=== PATIENT | female | born 1965 | race Caucasian/White ===

== ENCOUNTER 2019-06-21 10:08 | Emergency (ER) | payer MEDICAID ==
[~2019-06-21] VITALS: Ht 165.1 cm; Wt 92.5 kg
[2019-06-21 10:17] VITALS: BP 140/82
--- NOTE | 2019-06-21 10:36 | NUR ---
53/F BIB SELF C/O DIZZINESS/NAUSEA X1 DAY. PT STATES SHE HAS ALSO HAD A SORE THROAT. DENIES FEVER. FSBS 252 AT TRIAGE. HX: BREAST CANCER (REMISSION), DM. PATIENT STATES PAIN OF 4/10 AT THIS TIME. PATIENT POSITIONED FOR COMFORT; HOB ELEVATED; BEDRAILS UP X1; BED DOWN. ER MD MADE AWARE OF PT STATUS.
[2019-06-21 12:09] VITALS: BP 138/79
--- NOTE | 2019-06-21 12:09 | NUR ---
Patient discharged with v/s stable. Written and verbal after care instructions given and explained. Patient alert, oriented and verbalized understanding of instructions. Ambulatory with steady gait. All questions addressed prior to discharge. ID band removed. Patient advised to follow up with PMD. Rx of ZOFRAN, ATARAX given. Patient educated on indication of medication including possible reaction and side effects. Opportunity to ask questions provided and answered.
== END 2019-06-21 12:09 | disposition home or self-care (01) ==
LOC: MED 10:08
DX: R42 Dizziness and giddiness (principal); R11.2 Nausea with vomiting, unspecified; E11.9 Type 2 diabetes mellitus without complications; Z85.9 Personal history of malignant neoplasm, unspecified
CPT/HCPCS: 81002; 99283

== ENCOUNTER 2020-08-19 13:24 | Emergency (ER) | payer MEDICAID ==
[~2020-08-19] VITALS: Ht 160 cm; Wt 65.8 kg
[2020-08-19 13:42] VITALS: BP 137/73
[2020-08-19 14:10] LABS: BASOPHILS # (AUTO) 0.1 K/uL (0.00-0.22); BASOPHILS % (AUTO) 1.8 % (0.0-2.0); EOSINOPHILS # (AUTO) 0.1 K/uL (0-0.4); EOSINOPHILS % (AUTO) 2.2 % (0.0-4.0); HEMATOCRIT 39.8 % (36-48); HEMOGLOBIN 13.4 g/dL (12.0-16.0); LYMPHOCYTES # (AUTO) 1.5 K/uL (2.5-16.5); LYMPHOCYTES % (AUTO) 33.5 % (20.5-51.1); MEAN CORPUSCULAR HEMOGLOBIN 31 pg (27-31); MEAN CORPUSCULAR HGB CONC 34 g/dL (33-37); MEAN CORPUSCULAR VOLUME 90.9 fL (80-94); MONOCYTES # (AUTO) 0.2 K/uL (0.8-1.0); NEUTROPHILS # (AUTO) 2.6 K/uL (1.8-7.7); NEUTROPHILS % (AUTO) 57.5 % (42.2-75.2); PLATELET COUNT (AUTO) 218 K/uL (140-450); RED BLOOD CELL COUNT(AUTO) 4.38 MIL/uL (4.20-5.40); RED CELL DISTRIBUTION WIDTH 14.2 % (11.6-13.7); WHITE BLOOD COUNT (AUTO) 4.6 K/uL (4.8-10.8)
[2020-08-19 14:11] LABS: APPEARANCE,URINE CLEAR (CLEAR); BILIRUBIN,URINE NEGATIVE (NEGATIVE); BLOOD, URINE 1+ (NEGATIVE); COLOR,URINE YELLOW (YELLOW); LEUKOCYTE ESTERASE ,URINE TRACE (NEGATIVE); NITRITE, URINE NEGATIVE (NEGATIVE); UGLUCOSE NEGATIVE (NEGATIVE)
[2020-08-19 14:33] LABS: ALBUMIN 3.5 g/dL (3.4-5.0); ANION GAP 9.9 (8-16); CARBON DIOXIDE 30.1 mmol/L (21-32); CREATININE 0.7 mg/dL (0.6-1.3); TOTAL BILIRUBIN 0.3 mg/dL (0.0-1.0)
[2020-08-19] MEDS ORDERED: IBUP-2230 PO (14:53)
[2020-08-19] MEDS ORDERED: CEPH500T PO (14:53)
[2020-08-19 15:41] VITALS: BP 137/73
== END 2020-08-19 15:42 | disposition home or self-care (01) ==
LOC: MED 13:24
DX: N39.0 Urinary tract infection, site not specified (principal); N81.4 Uterovaginal prolapse, unspecified; E11.9 Type 2 diabetes mellitus without complications; Z79.899 Other long term (current) drug therapy
CPT/HCPCS: 36415; 80053; 81001; 81025; 85025; 87086; 99283

== ENCOUNTER 2021-12-14 12:02 | Emergency (ER) | payer MEDICAID ==
[~2021-12-14] VITALS: Ht 165.1 cm; Wt 82.6 kg
[~2021-12-14 12:02] MED LIST: CEPH500T PO; IBUP-2230 PO
[2021-12-14 12:06] VITALS: BP 119/84
--- NOTE | 2021-12-14 12:12 | NUR ---
56 Y/O FEMALE, PRESENTS TO ED WITH C/O DYSURIA AND LOWER ABDOMINAL PAIN. PT ALSO EXPERINCING CHEST DISCOMFORT STATING "HER HEART HAS BEEN BEATING FAST." DENIES VOMITING AND DIARRHEA; SKIN IS PINK/WARM/DRY; AAOX4 WITH EVEN AND STEADY GAIT; LUNGS CLEAR BL; HR EVEN AND REGULAR; PATIENT STATES PAIN OF 9/10 AT THIS TIME; PATIENT POSITIONED FOR COMFORT; HOB ELEVATED; BEDRAILS UP X2; BED DOWN. ER MD MADE AWARE OF PT STATUS. PMH: OSVALDO CHANDLER
--- NOTE | 2021-12-14 12:40 | NUR ---
Patient appears to be resting comfortably in bed. Vital Signs within normal limits. Respirations even and unlabored.
[2021-12-14] MEDS ORDERED: NACL 0.9% 1,000 ML IV ONE (13:15)
[2021-12-14] MEDS ORDERED: KETOROLAC 15 MG/ML VIAL IVP ONE (13:15)
[2021-12-14 13:41] LABS: BASOPHILS % (AUTO) 0.6 % (0.0-2.0); EOSINOPHILS % (AUTO) 0.1 % (0.0-4.0); HEMATOCRIT 41.2 % (36-48); HEMOGLOBIN 13.9 g/dL (12.0-16.0); LYMPHOCYTES # (AUTO) 1.2 K/uL (2.5-16.5); LYMPHOCYTES % (AUTO) 15.7 % (20.5-51.1); MEAN CORPUSCULAR HEMOGLOBIN 29 pg (27-31); MEAN CORPUSCULAR HGB CONC 34 g/dL (33-37); MEAN CORPUSCULAR VOLUME 84.5 fL (80-94); MONOCYTES # (AUTO) 0.6 K/uL (0.8-1.0); MONOCYTES % (AUTO) 7.5 % (1.7-9.3); NEUTROPHILS % (AUTO) 76.1 % (42.2-75.2); PLATELET COUNT (AUTO) 213 K/uL (140-450); RED BLOOD CELL COUNT(AUTO) 4.87 MIL/uL (4.20-5.40); WHITE BLOOD COUNT (AUTO) 7.8 K/uL (4.8-10.8)
[2021-12-14 14:34] LABS: ALBUMIN 3.1 g/dL (3.4-5.0); ANION GAP 11.3 (8-16); CARBON DIOXIDE 25.5 mmol/L (21-32); CREATININE 0.8 mg/dL (0.6-1.3); POTASSIUM 3.8 mmol/L (3.5-5.1); THYROID STIMULATING HORMONE 2.29 uIU/mL (0.34-3.74); TOTAL BILIRUBIN 0.6 mg/dL (0.0-1.0)
[2021-12-14] MEDS ORDERED: IBUP-2213 PO (15:33)
[2021-12-14] MEDS ORDERED: CIPR500T4 PO (15:33)
[2021-12-14 15:56] LABS: BILIRUBIN,URINE 1+ (NEGATIVE); BLOOD, URINE 3+ (NEGATIVE); COLOR,URINE YELLOW (YELLOW); LEUKOCYTE ESTERASE ,URINE 1+ (NEGATIVE); NITRITE, URINE NEGATIVE (NEGATIVE); UGLUCOSE 3+ (NEGATIVE)
[2021-12-14 15:58] VITALS: BP 119/84
--- NOTE | 2021-12-14 15:58 | NUR ---
Patient discharged with v/s stable. Written and verbal after care instructions given and explained. Patient alert, oriented and verbalized understanding of instructions. Ambulatory with steady gait. All questions addressed prior to discharge. ID band removed. Patient advised to follow up with PMD. Rx of CIPROFLOXACIN, IBUPROFEN (SENT) given. Patient educated on indication of medication including possible reaction and side effects. Opportunity to ask questions provided and answered.
[2021-12-14 16:07] LABS: APPEARANCE,URINE CLOUDY (CLEAR)
[2021-12-14 16:11] LABS: RBC,URINE 20-50 /HPF (0-5); WBC,URINE TOO MANY TO COUNT /HPF (0-5)
[2021-12-16] MEDS ORDERED: NITR100C7 PO (22:39)
== END 2021-12-14 15:58 | disposition home or self-care (01) ==
LOC: MED 12:02
DX: R30.0 Dysuria (principal); Z20.822 Contact with and (suspected) exposure to COVID-19; R53.1 Weakness; R53.83 Other fatigue; R00.0 Tachycardia, unspecified; E11.9 Type 2 diabetes mellitus without complications; Z90.710 Acquired absence of both cervix and uterus; Z98.890 Other specified postprocedural states; Z79.1 Long term (current) use of non-steroidal anti-inflammatories (NSAID); Z79.2 Long term (current) use of antibiotics
CPT/HCPCS: 36415; 80053; 81001; 82150; 83605; 83690; 84443; 85025; 87040; 87086; 87426; 87804; 93005; 96361; 96374; 99284; J1885; J7030

== ENCOUNTER 2022-08-13 06:34 | Day surgery (SDC) | payer OTHER ==
[~2022-08-13] VITALS: Ht 167.6 cm; Wt 79.8 kg
[~2022-08-13 06:34] MED LIST changes: +CIPR500T4 PO; +IBUP-2213 PO; +NITR100C7 PO
[2022-08-13] MEDS ORDERED: LIDOCAINE 2% 100 MG/5 ML UJET TP ONE (07:22)
[2022-08-13] MEDS ORDERED: fentaNYL citrate 0.05 MG/ML VIAL ONE (07:22)
[2022-08-13] MEDS ORDERED: fentaNYL citrate 0.05 MG/ML VIAL IVP ONE (09:00)
== END 2022-08-13 09:36 | disposition home or self-care (01) ==
LOC: MDS 06:34 → MMU 06:35 → MDS 09:36
PROVIDERS: ATTEND Internal Medicine Gastroenterology
DX: Z12.11 Encounter for screening for malignant neoplasm of colon (principal); D12.4 Benign neoplasm of descending colon; E11.9 Type 2 diabetes mellitus without complications; E78.5 Hyperlipidemia, unspecified; Z85.3 Personal history of malignant neoplasm of breast; Z79.84 Long term (current) use of oral hypoglycemic drugs; Z79.899 Other long term (current) drug therapy; Z20.822 Contact with and (suspected) exposure to COVID-19
CPT/HCPCS: 45385; 87426; J3010; 88305